=== PATIENT | female | born 1990 | race African-American/Black ===

== ENCOUNTER 2018-03-11 11:24 | Emergency (ER) | payer OTHER ==
[2018-03-11 11:55] VITALS: BP 127/62; PULSE 69; TEMP 97.6; BMI 25.4
[2018-03-11] MEDS ORDERED: IBUPROFEN 400 MG TABLET (FP) PO ONE ×2 (12:54→13:40)
[2018-03-11] MEDS ORDERED: CYCLOBENZAPRINE HCL 10 MG TABLET (FP) PO ONE (12:55)
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
[2018-03-11] MEDS ORDERED: CYCLOBENZAPRINE HCL 10 MG TABLET (FP) ONE (13:40)
== END 2018-03-11 14:11 | disposition home or self-care (01) ==
LOC: JERFT 11:24
DX: M54.5 Low back pain (principal); F17.210 Nicotine dependence, cigarettes, uncomplicated; S39.012A Strain of muscle, fascia and tendon of lower back, initial encounter; Y93.89 Activity, other specified; Y92.9 Unspecified place or not applicable
CPT/HCPCS: 72100-TC-FY; 84703; 99281-25